=== PATIENT | male | born 1965 | race Caucasian/White ===

== ENCOUNTER 2019-02-21 17:39 | Emergency (ER) | payer BC, OTHER ==
[~2019-02-21] VITALS: Ht 177.8 cm; Wt 90.7 kg
[~2019-02-21 17:39] MED LIST: CLIN300C11 PO; SACC250C3 PO
[2019-02-21 17:40] VITALS: BP_SYST 141
[2019-02-21] MEDS ORDERED: CLINDAMYCIN PHOSPHATE 300 MG/2 ML VIAL IM ONE (18:15)
[2019-02-21 18:31] VITALS: BP_SYST 124
== END 2019-02-21 18:28 | disposition home or self-care (01) ==
LOC: SED 17:39
DX: K04.7 Periapical abscess without sinus (principal); R03.0 Elevated blood-pressure reading, without diagnosis of hypertension; Z79.899 Other long term (current) drug therapy
CPT/HCPCS: 96372; 99283; J3490

== ENCOUNTER 2019-04-19 16:36 | Emergency (ER) | payer BC ==
[~2019-04-19] VITALS: Ht 185.4 cm; Wt 86.2 kg
[2019-04-19 16:57] VITALS: BP_SYST 154
[2019-04-19] MEDS ORDERED: DIPH-TET-PERTUS Vaccine 0.5 ML VIAL (ADACEL) I.M. ONE (17:15)
[2019-04-19 18:04] VITALS: BP_SYST 144
== END 2019-04-19 18:04 | disposition home or self-care (01) ==
LOC: SED 16:36
DX: L03.011 Cellulitis of right finger (principal); Z79.899 Other long term (current) drug therapy
CPT/HCPCS: 90715; 99283